=== PATIENT | male | born 1960 | race Caucasian/White ===

== ENCOUNTER 2016-03-31 18:19 | Emergency (ER) | payer OTHER ==
[~2016-03-31] VITALS: Ht 175.3 cm; Wt 95.3 kg
--- NOTE | 2016-03-31 19:01 | ED INFLUENZA/URI COMPLAINT ---
History of Present Illness General Chief Complaint: General Adult Stated Complaint: SOB; BOSY ACHES; COLD SYMPTOMS Source: patient Exam Limitations: no limitations Vital Signs & Intake/Output Vital Signs & Intake/Output Vital Signs Date Time Temp Pulse Resp B/P Pulse O2 O2 Flow FiO2 Ox Delivery Rate 03/31 2001 100.3 128 20 117/73 95 Room Air 03/31 1847 100.4 135 22 129/85 94 Room Air Allergies Coded Allergies: NO KNOWN ALLERGIES (03/31/16) Reconcile Medications Oseltamivir Phosphate (Tamiflu) 75 MG CAPSULE 1 CAP PO BID INFLUENZA Triage Note: TRIAGE: PT TO ER C/C PRODUCTIVE COUGH WITH YELLOW THICK PHLEGM REPORTED, ACHES, CHEST CONGESTION, CRACKLING IN MY CHEST", FEVERS. TACHYCARDIA. HX OF PNEUMONIA X 2, FEELS SAME. Triage Nurses Notes Reviewed? yes Onset: Abrupt Duration: day(s): (3) Timing: recent history Severity: severe No Modifying Factors: none Associated Symptoms: cough, muscle aches, FEVER HPI: This is a 55-year-old male who presents to the ER 3 days worth of cough, fever, not feeling well. He states he has a thick yellow purulent sputum. He is a daily smoker. Positive sick contacts over the weekend. He states he has not been able to eat or drink anything in the last 2 days. He said he was too sick to get out of bed yesterday. Past History Travel History Traveled to [place] past 21 day No Medical History Any Pertinent Medical History? 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 No Review of Systems Review of Systems Constitutional: Reports: chills, fever. EENTM: Reports: no symptoms. Respiratory: Reports: cough, short of breath, sputum production. Cardiovascular: Denies: chest pain, palpitations. GI: Denies: abdominal pain, nausea, vomiting. Genitourinary: Reports: no symptoms. Musculoskeletal: Reports: no symptoms. Skin: Reports: no symptoms. Neurological/Psychological: Reports: anxiety. Hematologic/Endocrine: Denies: bruising, bleeding, polyuria, polydipsia. Immunologic/Allergic: Denies: splenectomy. All Other Systems: Reviewed and Negative Physical Exam Physical Exam General Appearance: well developed/nourished, alert, awake, mild distress Head: atraumatic Eyes: Bilateral: normal appearance, PERRL. Ears, Nose, Throat: normal ENT inspection, moist mucous membrane, hearing grossly normal Neck: normal inspection, supple, full range of motion Respiratory: normal breath sounds, chest non-tender, no respiratory distress Cardiovascular: regular rate/rhythm Peripheral Pulses: 2+ radial (R), 2+ radial (L) Gastrointestinal: normal bowel sounds, soft, non-tender Back: normal inspection, normal range of motion Extremities: normal inspection, normal range of motion, no edema Neurologic/Psych: no motor/sensory deficits, awake, alert, oriented x 3 Skin: intact, normal color, warm/dry Core Measures Severe Sepsis Present: No Septic Shock Present: No Progress Differential Diagnosis: influenza, pneumonia Plan of Care: Orders Procedure Date/time Status LOWER RESPIRATORY CULTURE 03/31 1907 Active BLOOD CULTURE 03/31 1907 Active COMPREHENSIVE METABOLIC PANEL 03/31 1907 Complete CBC WITHOUT DIFFERENTIAL 03/31 1907 Active RAPID VIRAL INFLUENZA A 03/31 1900 Complete EKG 03/31 1851 Active Laboratory Tests 03/31/161942: Anion Gap 12, Estimated GFR > 60, BUN/Creatinine Ratio 23.8, Glucose 101 H, Calcium 9.0, Total Bilirubin 0.8, AST 36, ALT 54, Alkaline Phosphatase 52, Total Protein 7.3, Albumin 4.5, Globulin 2.8, Albumin/Globulin Ratio 1.6, CBC w Diff MAN DIFF ORDERED, RBC 4.86, MCV 89.2, MCH 30.3, RDW 12.9, MPV 9.0, Gran % 85.2 H, Lymphocytes % 4.3 L, Monocytes % 10.3 H, Eosinophils % 0, Basophils % 0.2, Absolute Granulocytes 7.1 H, Segmented Neutrophils Pending, Absolute Lymphocytes 0.4 L, Absolute Monocytes 0.9 H, Absolute Eosinophils 0, Absolute Basophils 0, PUBS MCHC 34.0 Microbiology 03/31 1944 BLOOD: Blood Culture - RECD 03/31 1929 BLOOD: Blood Culture - RECD 03/31 1907 LOWER RESP: Respiratory Culture - ORD 03/31 1907 LOWER RESP: Gram Stain - ORD LABS, CXR, FLU SWAB. NS, IV TORADOL ORDERED. FLU POSITIVE. REPLEAT FLUID BOUS ORDERED. TAMIFLU ORDERED. (MOHAN GAMBLE,ZAYDA) Diagnostic Imaging: Viewed by Me: Radiology Read. Discussed w/RAD: Radiology Read. Initial ED EKG: sinus tachycardia @ 116 bpm Rhythm Strip: sinus tachycardia Comments: PATIENT: NIDIA PARKS PRESENT AGE: 55 PATIENT ACCOUNT NO: [id number] : 61 LOCATION: [facility] ORDERING PHYSICIAN: ZAYDA PRESTON MD SERVICE DATE: 03/31/16 EXAM TYPE: RAD - XRY-CHEST XRAY, PA AND LATERAL EXAMINATION: XR CHEST CLINICAL INFORMATION: Cough. Fever. COMPARISON: CT scan of the chest 10/30/2014. TECHNIQUE: 2 views of the chest were obtained. FINDINGS: The right cardiac border is obscured. 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 There is hilar vascular engorgement. No overt interstitial or alveolar edema. There is no pleural effusion or pneumothorax. Upper mediastinal contours are normal. No acute osseous finding. IMPRESSION: Hilar vascular engorgement with no evidence of overt interstitial or alveolar edema. No consolidative disease or effusion. DICTATED BY: GWENDOLYN CASSIDY MD DATE/TIME DICTATED:03/31/162009 STORE GROUP MANAGER:RIA DATE/TIME TRANSCRIBED:03/31/162009 CONFIDENTIAL, DO NOT COPY WITHOUT APPROPRIATE AUTHORIZATION. <Electronically signed in Other Vendor System> SIGNED BY: GWENDOLYN CASSIDY MD 03/31 Departure Departure Time of Disposition: 2117 Disposition: HOME OR SELF CARE Condition: Stable Clinical Impression Primary Impression: Influenza A Referrals: MUNA PEDERSEN MD (PCP/Family) Additional Instructions: Take the tamiflu as directed. Motrin or tylenol as needed for pain. Follow up with your doctor in the office. Return as needed. Departure Forms: Customer Survey General Discharge Information Prescriptions: Current Visit Scripts Oseltamivir Phosphate (Tamiflu) 1 CAP PO BID #9 CAP
[2016-03-31 20:18] LABS: ABSOLUTE BASOPHIL COUNT 0 /CUMM (0.0-0.2); ABSOLUTE EOSINOPHIL COUNT 0 /CUMM (0.0-0.7); ABSOLUTE GRANULOCYTE CT 7.1 /CUMM (1.4-6.5); ABSOLUTE LYMPH COUNT 0.4 /CUMM (1.2-3.4); ABSOLUTE MONOCYTE COUNT 0.9 /CUMM (0.10-0.60); BASOPHIL % 0.2 % (0.0-2.0); EOSINOPHIL % 0 % (0-5); HEMATOCRIT 43.3 % (42-52); MEAN CORPUSCULAR HGB 30.3 PG (27.0-31.0); MEAN CORPUSCULAR VOLUME 89.2 FL (80.0-94.0); PLATELET COUNT 172 /CUMM (130-400); RBC DISTRIBUTION WIDTH 12.9 % (11.5-14.5); RED BLOOD CELL CT 4.86 /CUMM (4.70-6.10); WHITE BLOOD CELL COUNT 8.3 /CUMM (4.8-10.8)
--- NOTE | 2016-03-31 20:20 | RADIOLOGY REPORT ---
EXAMINATION: XR CHEST CLINICAL INFORMATION: Cough. Fever. COMPARISON: CT scan of the chest 10/30/2014. TECHNIQUE: 2 views of the chest were obtained. FINDINGS: The right cardiac border is obscured. 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 There is hilar vascular engorgement. No overt interstitial or alveolar edema. There is no pleural effusion or pneumothorax. Upper mediastinal contours are normal. No acute osseous finding. IMPRESSION: Hilar vascular engorgement with no evidence of overt interstitial or alveolar edema. No consolidative disease or effusion.
[2016-03-31 20:30] LABS: GRANULOCYTE % 85.2 % (42.2-75.2)
[2016-03-31] MEDS ORDERED: TAMIFLU75 M1 PO (21:19)
[2016-03-31 21:32] VITALS: BP 120/69
== END 2016-03-31 21:33 ==
LOC: ERH 18:19
PROVIDERS: Emergency Medicine
DX: J10.1 Influenza due to other identified influenza virus with other respiratory manifestations (principal); F17.210 Nicotine dependence, cigarettes, uncomplicated
CPT/HCPCS: 87040; 87070; 87804; 87804-59; 93005; 93010; 96374; 96375; J1885